=== PATIENT | female | born 2000 | race Caucasian/White ===

== ENCOUNTER 2022-09-16 15:41 | Emergency (ER) | payer OTHER ==
[~2022-09-16] VITALS: Ht 160 cm; Wt 52.2 kg
--- NOTE | 2022-09-16 15:55 | NUR ---
PT IS IN ROOM #2A. DR COLEMAN EVALUATED THE PT.
[2022-09-16] MEDS ORDERED: DULO20CA PO (15:58)
[2022-09-16 16:04] LABS: HEMATOCRIT 43.5 % (31.2-41.9); MEAN CORPUSCULAR HEMOGLOBIN 30.1 uug (24.7-32.8); MEAN CORPUSCULAR VOLUME 91.2 fL (75.5-95.3); PLATELET COUNT (AUTO) 352 K/uL (179-408)
[2022-09-16 16:16] LABS: *BLOOD, URINE NEGATIVE (NEGATIVE); *COLOR,URINE YELLOW (YELLOW); *KETONES,URINE 3+ (NEGATIVE); LEUKOCYTE ESTERASE ,URINE 1+ (NEGATIVE); NITRITE, URINE NEGATIVE (NEGATIVE); PH,URINE 7.5 (5.0-8.0); UGLUCOSE NEGATIVE (NEGATIVE)
[2022-09-16 16:16] LABS: CREATININE 0.7 mg/dL (0.6-1.3); POTASSIUM 3.4 mmol/L (3.5-5.1)
[2022-09-16 16:17] LABS: *BILIRUBIN,URIN 1+ (NEGATIVE)
[2022-09-16 16:18] LABS: *CLARITY,URINE HAZY (CLEAR)
[2022-09-16 16:22] LABS: BILIRUBIN,DIRECT 0.2 mg/dL (0.0-0.2); TOTAL PROTEIN, SERUM 8.3 g/dL (6.4-8.2)
[2022-09-16 16:27] LABS: *URINE HCG, QUAL NEGATIVE (NEGATIVE); BACTERIA,URINE FEW /HPF (NONE SEEN); SQUAMOUS EPITHELIAL CELL,UR FEW /HPF (NONE SEEN)
[2022-09-16] MEDS ORDERED: CEFTRIAXONE 1 G in IV DEXTROSE 5% 50 ML IV ONE (17:00)
[2022-09-16] MEDS ORDERED: IV NORMAL SALINE 1000 ML BAG IV ONE (17:00)
[2022-09-16] MEDS ORDERED: PIPERACILLIN SODIUM/TAZOBACTAM 3.375 G in IV DEXTROSE 5% 50 ML IV ONE (17:00)
[2022-09-16] MEDS ORDERED: CEFTRIAXONE /D5W 50ML IVPB **ER PYXIS IV ONE (17:09)
[2022-09-16] MEDS ORDERED: MORPHINE SULFATE 4 MG/1 ML DISP.SYRIN ONE (17:19)
[2022-09-16] MEDS ORDERED: ONDANSETRON 4 MG/2 ML VIAL ONE (17:20)
[2022-09-16] MEDS ORDERED: MORPHINE SULFATE 4 MG/1 ML DISP.SYRIN IV ONE (17:30)
[2022-09-16] MEDS ORDERED: ONDANSETRON 4 MG/2 ML VIAL IV ONE (17:30)
[2022-09-16] MEDS ORDERED: IBUP-1955 PO (17:40)
[2022-09-16] MEDS ORDERED: CEPH500T PO (17:40)
[2022-09-16] MEDS ORDERED: ONDA4TAB5 PO (17:40)
[2022-09-16 20:11] VITALS: BP 115/67
--- NOTE | 2022-09-16 20:11 | NUR ---
Patient discharged to home in stable condition. Written and verbal after care instructions given. Patient verbalizes understanding of instructions. Stressed follow up or return to ER for worsening s/s.
== END 2022-09-16 19:56 | disposition home or self-care (01) ==
LOC: ER 15:41
DX: N39.0 Urinary tract infection, site not specified (principal); R10.31 Right lower quadrant pain; D72.829 Elevated white blood cell count, unspecified; E87.6 Hypokalemia
CPT/HCPCS: 99285; 74176; 96365; 76856; 96375; 80076; 80048; 81001; 84703; 83690; 85025; 36415; 87040; J0696; J2405; J2270; J7040; A4663